=== PATIENT | female | born 2000 | race Hispanic/Latino ===

== ENCOUNTER 2018-05-24 23:59 | Emergency (ER) | payer MEDICAID ==
[2018-05-25 00:10] VITALS: RESP 16
--- NOTE | 2018-05-25 02:01 | ED PDOC ---
Lower Extremity Pain/Injury Time Seen by Provider: 05/25/18 00:30 Chief Complaint (Nursing): Lower Extremity Problem/Injury Chief Complaint (Provider): Lower Extremity Problem/Injury History Per: Patient History/Exam Limitations: no limitations Onset/Duration Of Symptoms: Days (x1) Current Symptoms Are (Timing): Still Present Additional Complaint(s): Pema Woody is a 17 year old female with a past medical history of anxiety who is presenting to the ED for evaluation of left knee pain onset earlier yesterday. Patient states that she twisted her knee but immediately after she was able to walk and bear weight. A few hours later, she states that the pain increased. Patient denies any numbness, tingling, or pedal edema. PMD: Len Garcia - Knee Description Of Injury: Twisted Past Medical History Reviewed: Historical Data, Nursing Documentation, Vital Signs Vital Signs: Last Vital Signs Temp 98.0 F 05/25/18 00:08 Pulse 96 H 05/25/18 00:08 Resp 16 05/25/18 00:08 BP 97/65 L 05/25/18 00:08 Pulse Ox 98 05/25/18 00:08 - Medical History PMH: Anxiety - Surgical History Surgical History: Tonsillectomy - Family History Family History: States: Unknown Family Hx - Social History Current smoker - smoking cessation education provided: Yes (some days) Alcohol: Social Drugs: Cannabis - Allergies Allergies/Adverse Reactions: Allergies Allergy/AdvReac Type Severity Reaction Status Date / Time No Known Allergies Allergy Verified 05/25/18 00:08 Review of Systems ROS Statement: Except As Marked, All Systems Reviewed And Found Negative Musculoskeletal: Positive for: Leg Pain (knee pain), Other (pedal edema) Neurological: Negative for: Numbness, Other (tingling) Physical Exam - Reviewed Nursing Documentation Reviewed: Yes Vital Signs Reviewed: Yes - Physical Exam Appears: Positive for: Well, Non-toxic, No Acute Distress Head Exam: Positive for: ATRAUMATIC, NORMAL INSPECTION, NORMOCEPHALIC Neck: Positive for: Normal Back: Positive for: Normal Inspection Extremity: Positive for: Tenderness (around patella). Negative for: Normal ROM (decreased range of motion secondary to pain), Deformity, Swelling, Other ( hematoma, cellulitis) Neurologic/Psych: Positive for: Alert, Oriented. Negative for: Motor/Sensory Deficits - ECG O2 Sat by Pulse Oximetry: 98 (RA) Pulse Ox Interpretation: Normal Medical Decision Making Medical Decision Making: Time: 1:09 Plan: --X-Ray Left Knee --Tylenol 650 mg PO X-Ray shows no clinically significant abnormalities. Upon provider evaluation, patient is stable and ready for discharge. All questions were answered and patient advised to follow up with primary care physician and return if symptoms persist or worsen. Scribe Attestation: Documented by, Leslie Anderson acting as a scribe for Gay Lopez MD. Provider Scribe Attestation: All medical record entries made by the Scribe were at my direction and personally dictated by me. I have reviewed the chart and agree that the record accurately reflects my personal performance of the history, physical exam, medical decision making, and the department course for this patient. I have also personally directed, reviewed, and agree with the discharge instructions and disposition. Disposition - Clinical Impression Clinical Impression: Knee pain, left - Patient ED Disposition Is Patient to be Admitted: No Counseled Patient/Family Regarding: Studies Performed, Diagnosis, Need For Followup - Disposition Referrals: [facility] [Outside] Td Houston MD [Staff Provider] - Len Garcia MD [Primary Care Provider] - Disposition: Routine/Home Disposition Time: 02:40 Condition: IMPROVED Additional Instructions: follow up with orthopedics in 1-2 days take tylenol for pain return to the ED With any worsening or concerning symptoms Instructions: Knee Pain (DC) Forms: [employer] (German), [facility] ED School/Work Excuse
[2018-05-25 03:12] VITALS: BP 104/76; PULSE 76; TEMP 97.8
--- NOTE | 2018-05-25 08:38 | RAD ---
PROCEDURE: Left Knee Radiographs. HISTORY: Pain. COMPARISON: None. FINDINGS: BONES: Normal. No fracture. JOINTS: Normal. No osteoarthritis. JOINT EFFUSION: None. OTHER FINDINGS: None. IMPRESSION: Normal radiographs of the left knee.
[2018-05-28 21:05] VITALS: O2SAT 98
== END 2018-05-25 03:12 | disposition home or self-care (01) ==
LOC: H.ER 23:59
DX: M25.562 Pain in left knee (principal); F41.9 Anxiety disorder, unspecified